=== PATIENT | female | born 1960 | race Hispanic/Latino ===

== ENCOUNTER 2017-07-21 18:02 | Emergency (ER) | payer MEDICARE ==
[2017-07-21 18:49] VITALS: RESP 18
[2017-07-21 20:40] VITALS: BP 111/70; PULSE 81; TEMP 97.8; O2SAT 98
--- NOTE | 2017-07-21 21:02 | C.PDOC ---
History Of Present Illness 57 year old female presents to the ED with complaints of pain to the right lateral rib, that is exacerbated by deep breaths and certain movements, since earlier today. Patient reports while trying to clean binds while bending down on her knees, she felt a sudden pop to right lateral ribs. Denies SOB, abdominal pain, N/V, back pain, urinary symptoms, trauma, fever and cough. Time Seen by Provider: 07/21/17 18:12 Chief Complaint (Nursing): Rib Injury History Per: Patient History/Exam Limitations: no limitations Onset/Duration Of Symptoms: Days (1) Current Symptoms Are (Timing): Still Present (but improving) Past Medical History Vital Signs: Last Vital Signs Temp 97.8 F 07/21/17 20:39 Pulse 81 07/21/17 20:39 Resp 18 07/21/17 20:39 BP 111/70 07/21/17 20:39 Pulse Ox 98 07/21/17 21:14 - Medical History PMH: Bipolar Disorder, Hypercholesterolemia Family History: States: Unknown Family Hx - Social History Hx Alcohol Use: Yes Hx Substance Use: No Review Of Systems Constitutional: Negative for: Fever, Chills, Malaise Cardiovascular: Positive for: Chest Pain. Negative for: Palpitations, Orthopnea Respiratory: Negative for: Cough, Shortness of Breath, Hemoptysis Gastrointestinal: Negative for: Nausea, Vomiting, Abdominal Pain Musculoskeletal: Negative for: Neck Pain, Shoulder Pain, Back Pain Skin: Negative for: Rash, Lesions, Jaundice Physical Exam - Physical Exam Appears: Well, Non-toxic, In Acute Distress (mild painful) Skin: Normal Color, Warm, Dry, No Rash Head: Atraumatic, Normacephalic Eye(s): bilateral: Normal Inspection Neck: Normal, Normal ROM, No Midline Cervical Tenderness, No Paracervical Tenderness Chest: No Deformity, No Tenderness, No Ecchymosis, No Subcutaneous Emphysema Cardiovascular: Rhythm Regular, No Murmur Respiratory: Normal Breath Sounds, No Decreased Breath Sounds, No Rhonchi, No Wheezing Gastrointestinal/Abdominal: Normal Exam, Bowel Sounds, Soft, No Tenderness Back: Normal Inspection, No CVA Tenderness, No Vertebral Tenderness Extremity: Normal ROM, No Tenderness, No Swelling ED Course And Treatment ECG: Interpreted By Me, Viewed By Me ECG Rhythm: Sinus Tachycardia Interpretation Of ECG: Normal axis. No acute ST-T wave changes. Rate From EC O2 Sat by Pulse Oximetry: 98 (RA) - Other Rad XR R ribs X-Ray: Interpreted by Me Interpretation: (-) pneumothorax, (+) old R 7th rib fracture Progress Note: EKG and Ribs X-Ray was ordered. Patient was given Toradol. Medical Decision Making Medical Decision Making: XR results d/w the patient. On re-evaluation, patient is resting comfortably in bed in no acute distress, breathing is easy and unlabored, speaking in full sentences. On exam, lungs are clear to auscultation with no wheezing and no rhonchi, BS equal b/l. Disposition Counseled Patient/Family Regarding: Studies Performed, Diagnosis, Need For Followup, Rx Given - Disposition Disposition: HOME/ ROUTINE Disposition Time: 20:30 Condition: STABLE Additional Instructions: Follow up with pmd in 2 days for re-evaluation and follow up. Take medications as prescribed. Return to the ER at any time for any new or worsening symptoms. 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 - Scribe Statement The provider has reviewed the documentation as recorded by the Scribjohnny Herrmann All medical record entries made by the Vickibjohnny were at my direction and personally dictated by me. I have reviewed the chart and agree that the record accurately reflects my personal performance of the history, physical exam, medical decision making, and the department course for this patient. I have also personally directed, reviewed, and agree with the discharge instructions and disposition.
--- NOTE | 2017-07-22 08:34 | RAD ---
PROCEDURE: Radiographs of the Chest and Right Ribs. HISTORY: pain COMPARISON: None available. TECHNIQUE: Frontal radiograph of the chest and multiple oblique radiographs of the right ribs were obtained. FINDINGS: RIGHT RIBS: No fracture or focal lesion visualized. LUNGS: Clear. PLEURA: No pneumothorax or pleural fluid. CARDIOVASCULAR: Normal sized heart. No pulmonary vascular congestion. OTHER FINDINGS: None. IMPRESSION: Unremarkable radiographs of the chest and right ribs. No right rib fracture.
--- NOTE | 2017-07-22 11:46 | CARD ---
APPROVED REPORT EKG Measurement Heart [id number] <Conclusion> Sinus tachycardia Low voltage QRS Borderline ECG
== END 2017-07-21 20:40 | disposition home or self-care (01) ==
LOC: C.ER 18:02
DX: R07.89 Other chest pain (principal); E78.00 Pure hypercholesterolemia, unspecified
CPT/HCPCS: 71100; 93005; 96372; 99284; J1885